=== PATIENT | female | born 1990 | race Two or more races ===

== ENCOUNTER 2021-04-25 04:40 | Emergency (ER) | payer SELFPAY ==
[~2021-04-25] VITALS: Ht 157.5 cm; Wt 90.9 kg
--- NOTE | 2021-04-25 05:18 | ED.ADGEN ---
Past Medical History Past Medical History: No Pertinent History Past Surgical History: Appendectomy, Tonsillectomy Smoking Status: Never Smoker Alcohol Use: None General Adult EDM: Chief Complaint: HEADACHE HPI: HPI: Patient is a 31 year old female coming in for headache for 6 days. Patient has been taking Tylenol and Advil intermittently with some improvement in symptoms but they returned. Has no history of migraines. Denies any recent trauma or whiplash. Patient was seen at [facility] 2 days ago for chest pain and was told the headache was likely due to stress. Does not have a primary care provider and recently moved here from [place]. No personal history of migraines but has a sister who suffers migraines. Denies any neck pain or stiffness, fevers, photophobia, congestion, rhinorrhea, ear pain or pressure. No other complaints of the headache which she describes as the top of her head and occ iput switches from left to right describes the pain as sharp and worse with palpation. Review of Systems: Review of Systems: All other systems within normal limits except for as noted in the HPI Current Medications: Current Medications Medications (Trade) Dose Ordered Sig/Marce Start Time Stop Time Status Last Admin Dose Admin Ceftriaxone Sodium (Rocephin) 1 gm 1X ONCE 04/25/21 06:45 04/25/21 06:46 UNV Diphenhydramine HCl (Benadryl) 50 mg 1X ONCE 04/25/21 05:30 04/25/21 05:31 DC 04/25/21 05:52 50 MG Ketorolac Tromethamine (Toradol 15mg Vial) 15 mg 1X ONCE 04/25/21 05:30 04/25/21 05:31 DC 04/25/21 05:54 15 MG Prochlorperazine Edisylate (Compazine) 10 mg 1X ONCE 04/25/21 05:30 04/25/21 05:31 DC 04/25/21 05:54 10 MG Sodium Chloride 1,000 ml @ 1,000 mls/hr 1X ONCE 04/25/21 05:30 04/25/21 06:29 DC 04/25/21 05:50 1,000 MLS/HR Allergies: Allergies: Allergies Coded Allergies Type Severity Reaction Last Updated Verified acetaminophen Allergy Unknown 04/25/21 Yes codeine Allergy Unknown 04/25/21 Yes Physical Exam: PE: Constitutional: Well developed, well nourished, no acute distress, non-toxic appearance. [] HENT: Normocephalic, atraumatic, bilateral external ears normal, nose normal. Bilateral TMs and canals normal [] Eyes: PERRLA, conjunctiva normal, no discharge. Extraocular movements intact [] Neck: No rigidity, supple, no stridor. Nontender, no cervical lymphadenopathy [] Cardiovascular: Regular rate and rhythm, brisk cap refill [] Lungs & Thorax: Non labored symmetric respirations, no tachypnea or respiratory distress [] Abdomen: Soft, nondistended. Skin: Warm, dry, no erythema, no rash. [] Back: Unremarkable Extremities: No deformities, range of motion grossly intact, no lower extremity edema [] Neurologic: Alert and oriented X 3, no focal deficits noted. Cranial nerves and [] Psychologic: Affect normal, judgement normal, mood normal. [] Constitutional: Well developed, well nourished, no acute distress, non-toxic appearance HENT: Normocephalic, atraumatic Eyes: PERRL, EOMI, conjunctiva normal, no discharge Neck: Normal range of motion, supple Lungs & Thorax: No respiratory distress, equal chest rise and fall Skin: Warm, dry, no rash Extremities: No tenderness, ROM intact, no edema Neurologic: Alert and oriented X 3, normal motor function, normal sensory function, no focal deficits noted Psychologic: Affect normal, judgment normal Current Patient Data: Labs: Laboratory Tests Test 04/25/21 05:42 04/25/21 05:45 POC Urine HCG, Qualitative Hcg negative (Negative) White Blood Count 4.7 x10^3/uL (4.0-11.0) Red Blood Count 4.85 x10^6/uL (3.50-5.40) Hemoglobin 12.7 g/dL (12.0-15.5) Hematocrit 38.1 % (36.0-47.0) Mean Corpuscular Volume 78 fL (79-100) L Mean Corpuscular Hemoglobin 26 pg (25-35) Mean Corpuscular Hemoglobin Concent 34 g/dL (31-37) Red Cell Distribution Width 14.7 % (11.5-14.5) H Platelet Count 182 x10^3/uL (140-400) Neutrophils (%) (Auto) 49 % (31-73) Lymphocytes (%) (Auto) 42 % (24-48) Monocytes (%) (Auto) 6 % (0-9) Eosinophils (%) (Auto) 3 % (0-3) Basophils (%) (Auto) 0 % (0-3) Neutrophils # (Auto) 2.3 x10^3/uL (1.8-7.7) Lymphocytes # (Auto) 2.0 x10^3/uL (1.0-4.8) Monocytes # (Auto) 0.3 x10^3/uL (0.0-1.1) Eosinophils # (Auto) 0.1 x10^3/uL (0.0-0.7) Basophils # (Auto) 0.0 x10^3/uL (0.0-0.2) Sodium Level 138 mmol/L (136-145) Potassium Level 3.6 mmol/L (3.5-5.1) Chloride Level 103 mmol/L (98-107) Carbon Dioxide Level 29 mmol/L (21-32) Anion Gap 6 (6-14) Blood Urea Nitrogen 10 mg/dL (7-20) Creatinine 0.7 mg/dL (0.6-1.0) Estimated GFR (Cockcroft-Gault) 98.9 BUN/Creatinine Ratio 14 (6-20) Glucose Level 103 mg/dL (70-99) H Calcium Level 8.5 mg/dL (8.5-10.1) Phosphorus Level 3.3 mg/dL (2.6-4.7) Magnesium Level 2.0 mg/dL (1.8-2.4) Total Bilirubin 0.4 mg/dL (0.2-1.0) Aspartate Amino Transferase (AST) 15 U/L (15-37) Alanine Aminotransferase (ALT) 23 U/L (14-59) Alkaline Phosphatase 78 U/L (46-116) Total Protein 7.1 g/dL (6.4-8.2) Albumin 3.9 g/dL (3.4-5.0) Albumin/Globulin Ratio 1.2 (1.0-1.7) Serum Test, Qualitative Negative (NEG) Laboratory Tests 04/25/21 05:45 Laboratory Tests 04/25/21 05:45 Vital Signs: Vital Signs Date Time Temp Pulse Resp B/P (MAP) Pulse Ox O2 Delivery O2 Flow Rate FiO2 04/25/21 07:06 76 16 123/63 (83) 100 Room Air 04/25/21 04:58 97.9 97.9 EKG: EKG: [] Heart Score: C/O Chest Pain: No Radiology/Procedures: Radiology/Procedures: PROCEDURE: CT HEAD WO CONTRAST INDICATION: Reason: headache, new onset / Spl. Instructions: / History: COMPARISON: None. TECHNIQUE: Axial CT images obtained through the head without intravenous contrast. One or more of the following individualized dose reduction techniques were utilized for this examination: 1. Automated exposure control; 2. Adjustment of the mA and/or kV according to patient size; 3. Use of iterative reconstruction technique. FINDINGS: No intracranial hemorrhage. No significant midline shift. Ventricles and sulci are unremarkable. No acute osseous abnormality. IMPRESSION: * No acute intracranial hemorrhage. Electronically signed by: Bang Galvan MD (04/25/2021 6:44 AM) DESKTOP- [id number] Course & Med Decision Making: Course & Med Decision Making Pertinent Labs and Imaging studies reviewed. (See chart for details) 0600- Sign out received from Dr. Marcano for patient with headache awaiting laboratory and CT imaging. Labs stable. CT head without acute process. Symptomatic treatment previously provided. Patient seen and evaluated by myself. Patient stable for discharge with outpatient follow-up with PCP/neurology. Neurology referral provided. Discussed findings and plan with patient, who acknowledges understanding and agreement. Kali Disclaimer: Kali Disclaimer: This electronic medical record was generated, in whole or in part, using a voice recognition dictation system. Departure Departure Impression: Primary Impression: Headache Disposition: 01 HOME / SELF CARE / HOMELESS Condition: STABLE Referrals: ESTELLE BUNCH MD Patient Instructions: Headache, FAQs Additional Instructions: Increase fluid hydration. Scripts Naproxen (NAPROXEN) 375 Mg Tablet 375 MG PO TID PRN PRN for PAIN, #20 TAB Prov: JASSON BARAKAT DO 04/25/21 Problem Qualifiers Primary Impression: Headache Headache type: unspecified Headache chronicity pattern: acute headache Intractability: not intractable Qualified Codes: R51.9 - Headache, unspecified TALIA MARCANO MD Apr 25, 2021 05:18 JASSON BARAKAT DO Apr 25, 2021 06:51
[2021-04-25] MEDS ORDERED: IV NORMAL SALINE 1000ML BAG 1,000 ML IV ONE (05:30)
[2021-04-25] MEDS ORDERED: KETOROLAC 15 MG/ML VIAL. IVP ONE (05:30)
[2021-04-25] MEDS ORDERED: diphenhydrAMINE 50 MG/ML VIAL IVP ONE (05:30)
[2021-04-25] MEDS ORDERED: PROCHLORPERAZINE 10 MG/2 ML VIAL. IV ONE (05:30)
[2021-04-25 06:06] LABS: BASO % 0 % (0-3); EOS # 0.1 x10^3/uL (0.0-0.7); EOS % 3 % (0-3); HEMATOCRIT 38.1 % (36.0-47.0); HEMOGLOBIN 12.7 g/dL (12.0-15.5); LYMPH % 42 % (24-48); MEAN CORPUSCULAR HEMOGLOBIN 26 pg (25-35); MEAN CORPUSCULAR HGB CONC 34 g/dL (31-37); MEAN CORPUSCULAR VOLUME 78 fL (79-100); MONO # 0.3 x10^3/uL (0.0-1.1); MONO % 6 % (0-9); NEUT # 2.3 x10^3/uL (1.8-7.7); NEUT % 49 % (31-73); PLATELET COUNT 182 x10^3/uL (140-400); RED BLOOD COUNT 4.85 x10^6/uL (3.50-5.40); RED CELL DISTRIBUTION WIDTH 14.7 % (11.5-14.5); WHITE BLOOD COUNT 4.7 x10^3/uL (4.0-11.0)
[2021-04-25 06:07] LABS: CALCIUM 8.5 mg/dL (8.5-10.1); CREATININE 0.7 mg/dL (0.6-1.0); GFR 98.9; POTASSIUM 3.6 mmol/L (3.5-5.1)
[2021-04-25 06:10] LABS: PREG TEST PT QUAL NEGATIVE (NEG)
[2021-04-25 06:13] LABS: ALBUMIN 3.9 g/dL (3.4-5.0); ALBUMIN/GLOBULIN RATIO 1.2 (1.0-1.7); PHOSPHORUS 3.3 mg/dL (2.6-4.7); TOTAL BILIRUBIN 0.4 mg/dL (0.2-1.0); TOTAL PROTEIN 7.1 g/dL (6.4-8.2)
[2021-04-25] MEDS ORDERED: cefTRIAXone IV Push 1 GM VIAL. IVP ONE (06:45)
--- NOTE | 2021-04-25 06:47 | RAD ---
INDICATION: Reason: headache, new onset / Spl. Instructions: / History: COMPARISON: None. TECHNIQUE: Axial CT images obtained through the head without intravenous contrast. One or more of the following individualized dose reduction techniques were utilized for this examinat ion: 1. Automated exposure control; 2. Adjustment of the mA and/or kV according to patient size; 3 . Use of iterative reconstruction technique. FINDINGS: No intracranial hemorrhage. No significant midline shift. Ventricles and sulci are unremarkable. No acute osseous abnormality. IMPRESSION: * No acute intracranial hemorrhage. Electronically signed by: Bang Galvan MD (04/25/2021 6:44 AM) [id number]
[2021-04-25] MEDS ORDERED: NAPR-695 PO (06:51)
[2021-04-25 07:06] VITALS: BP 123/63
== END 2021-04-25 07:12 | disposition home or self-care (01) ==
LOC: ER 04:40
DX: R51.9 Headache, unspecified (principal); Z88.5 Allergy status to narcotic agent; Z88.6 Allergy status to analgesic agent
CPT/HCPCS: 36415; 70450; 80053; 81025; 83735; 84100; 84703; 85025; 96361; 96374; 96375; 99284; J0780; J1200; J1885; J7030

== ENCOUNTER → 2021-05-06 | Outpatient (CLI) | payer OTHER ==
[2021-04-25 07:06] VITALS: BP 123/63
[~2021-05-06] MED LIST: GABA600T7 PO; NAPR-695 PO
== END ==
LOC: LAB 09:57
PROVIDERS: ATTEND Obstetrics & Gynecology
DX: Z01.812 Encounter for preprocedural laboratory examination (principal); Z20.822 Contact with and (suspected) exposure to COVID-19
CPT/HCPCS: U0003; U0005

== ENCOUNTER 2021-05-07 06:18 | Day surgery (SDC) | payer OTHER ==
[~2021-05-07] VITALS: Ht 157.5 cm; Wt 90.9 kg
[~2021-05-07 06:18] MED LIST changes: -GABA600T7 PO; +HYDROmorphone 2 MG/ML INJ. IVP PRN; +IV RINGERS,LACTATED 1000ML 1,000 ML IV SCH; +MORPHINE SULFATE 2 MG/ML INJ. IVP PRN; +PROCHLORPERAZINE 10 MG/2 ML VIAL. IVP PRN; +fentaNYL PF VIAL 100 MCG/2 ML VIAL IVP PRN
[2021-05-07 06:40] VITALS: BP 121/80
[2021-05-07] MEDS ORDERED: BUPIVACAINE-EPI 0.25% 30 ML VIAL KIT. ONE (07:06)
[2021-05-07] MEDS ORDERED: PROPOFOL 10 MG/ML (20ML) VIAL. IV ONE (07:20)
[2021-05-07] MEDS ORDERED: DEXAMETHASONE SOD PHOS 4 MG/ML VIAL ONE (07:20)
[2021-05-07] MEDS ORDERED: fentaNYL PF VIAL 100 MCG/2 ML VIAL ONE ×2 (07:20→08:54)
[2021-05-07] MEDS ORDERED: ONDANSETRON PF 4 MG/2 ML VIAL. ONE (07:20)
[2021-05-07] MEDS ORDERED: ROCURONIUM 50 MG/5 ML VIAL. ONE (07:20)
[2021-05-07] MEDS ORDERED: LIDOCAINE 2% PF 5 ML VIAL. ONE (07:20)
[2021-05-07] MEDS ORDERED: MIDAZOLAM HCL/PF 2 MG/2 ML VIAL. ONE (07:21)
[2021-05-07] MEDS ORDERED: GLYCOPYRROLATE 1 MG/5 ML VIAL. ONE (07:21)
[2021-05-07] MEDS ORDERED: NEOSTIGMINE METHYLSULFATE 5 MG/5 ML SYRINGE. ONE (07:21)
[2021-05-07] MEDS ORDERED: SUCCINYLCHOLINE 200 MG/10 ML VIAL. ONE (07:59)
--- NOTE | 2021-05-07 08:35 | PDOC4 ---
BRIEF OPERATIVE NOTE Date: May 07, 2021 Pre-Op Diagnosis Sterilization Post-Op Diagnosis Same Procedure Performed [facility] BTL wtih Filshie Clips Surgeon Dr. Alston Supervisor [employer] Repairer: Christine Anesthesia Type: General Blood Loss 5 ml Specimens Obtained none Findings nml size uterus, nml fallopian tubes and ovaries ed. Complications none Operative Note see dictation RADHA ALSTON Jr, MD May 07, 2021 08:35
[2021-05-07] MEDS ORDERED: GABA600T7 PO (08:37)
--- NOTE | 2021-05-07 08:37 | DISCH ---
DISCHARGE INSTRUCTIONS Condition on Discharge Condition on Discharge: Stable Activity After Discharge Activity Instructions for Disc: Activity as tolerated Lifting Instructions after Dis: No heavy lifting Driving Instructions after Dis: Do not drive today Diet after Discharge Diet after Discharge: Regular Contacting the DRDonavon after DC Call your doctor for: Concerns you may have Follow-Up Follow up with: Dr. Alston in 1 week. RADHA ALSTON Jr, MD May 07, 2021 08:37
[2021-05-07] MEDS ORDERED: SUGAMMADEX SODIUM 200 MG/2 ML VIAL. IVP ONE (08:45)
[2021-05-07] MEDS: fentaNYL PF VIAL 100 MCG/2 ML VIAL IVP PRN ×2 (08:58→09:18)
[2021-05-07 09:32] VITALS: BP 114/54
--- NOTE | 2021-05-07 11:10 | OP ---
DATE OF SURGERY: 05/07/2021 PREOPERATIVE DIAGNOSIS: Sterilization. POSTOPERATIVE DIAGNOSIS: Sterilization. PROCEDURE: Laparoscopic BTL with Filshie clips. SURGEON: Oswaldo Alston MD [employer] H[employer] DRIVER: Missy. ANESTHESIA: GETA. ESTIMATED BLOOD LOSS: 5 mL. COMPLICATIONS: None. FINDINGS: Normal-sized uterus, normal fallopian tubes and ovaries bilaterally. SUMMARY: A 31-year-old female who desires permanent sterilization, was counseled on the risks, benefits and expectations as well as the failure rate and desired to proceed. DESCRIPTION OF PROCEDURE: The patient was taken to surgery suite and placed in dorsal lithotomy position. Was prepped with Betadine solution for vaginal prep and ChloraPrep for abdominal prep. After adequate anesthesia, bivalve speculum was placed vaginally. Anterior lip of the cervix grasped with single-tooth tenaculum. Uterine acorn manipulator was then placed. The bivalve speculum was removed. Attention was now placed on abdomen. Small transverse skin incision was made just below the umbilicus with a scalpel. The Veress needle was then placed through the infraumbilical incision site. The abdomen was allowed to insufflate up to 1-1/2 liters CO2 gas. The Veress needle was then removed. A 5 mm trocar was placed. The scope was positioned. Uterus appeared normal size. Both fallopian tubes and ovaries appeared normal bilaterally. A second incision was made in the left lower quadrant in which an 8 mm trocar was placed with the aid of the Filshie clip applicator. Filshie clip was applied to the right fallopian tube in the isthmus region totally occluding the fallopian tube. Same process took place with left adnexa. The trocars were then removed under direct visualization. The abdomen was allowed to deflate as much as possible along with mechanical manipulation. The 2 skin incisions were reapproximated using 4-0 Vicryl suture in subcuticular manner. A 0.25% Marcaine with epinephrine was injected in each incision site. Single-tooth tenaculum and uterine acorn manipulator were both removed. The patient tolerated the procedure well and was taken to recovery room in stable condition. Sponge and needle count correct x 3. ZEEP/SHERMAN/VRI DR: SOPHIE/humphrey TID: [id number]
== END 2021-05-07 10:04 | disposition home or self-care (01) ==
LOC: SURG 06:18
PROVIDERS: ATTEND Obstetrics & Gynecology
DX: Z30.2 Encounter for sterilization (principal); E78.00 Pure hypercholesterolemia, unspecified; G47.30 Sleep apnea, unspecified; E66.9 Obesity, unspecified; E11.9 Type 2 diabetes mellitus without complications; M19.90 Unspecified osteoarthritis, unspecified site; F41.9 Anxiety disorder, unspecified; F32.9 Major depressive disorder, single episode, unspecified; Z79.84 Long term (current) use of oral hypoglycemic drugs; Z79.899 Other long term (current) drug therapy; Z90.49 Acquired absence of other specified parts of digestive tract; Z98.890 Other specified postprocedural states; Z88.0 Allergy status to penicillin
CPT/HCPCS: 58671; 81025; A4930; A6219; J0330; J1100; J2250; J2405; J2704; J2710; J3010; J3490; L8699